=== PATIENT | female | born 1980 | race Caucasian/White ===

== ENCOUNTER 2020-11-20 15:08 | Emergency (ER) | payer BC, SELFPAY ==
--- NOTE | ~2020-11-20 | XR_ITS ---
XR tibia fibula RT 2V DATE: 11/20/2020 15:39 INDICATION: Fall today. Lower leg and ankle pain. TECHNIQUE: AP and lateral views COMPARISON: None FINDINGS: No fracture or dislocation. Normal alignment at the ankle and knee joints. No periosteal re action or bone destruction. IMPRESSION: Negative Reviewed, dictated and finalized at location B. IMPRESSION: Negative
--- NOTE | ~2020-11-20 | XR_ITS ---
XR knee RT min 4V DATE: 11/20/2020 15:38 INDICATION: Fall today. Lateral right knee pain. TECHNIQUE: 4 views. COMPARISON: None FINDINGS: No fracture or dislocation or joint effusion. No radiopaque intra-articular loose body or c hondrocalcinosis. Joint spaces are well preserved. No periosteal reaction or bone destruction. IMPRESSION: Negative Reviewed, dictated and finalized at location B. IMPRESSION: Negative
--- NOTE | ~2020-11-20 | XR_ITS ---
XR ankle RT min 3V DATE: 11/20/2020 15:38 INDICATION: Fall. Proximal lateral right ankle pain TECHNIQUE: 4 views COMPARISON: None FINDINGS: No fracture or dislocation of the ankle or disruption of the ankle mortise. No periosteal r eaction or bone destruction. IMPRESSION: Negative Reviewed, dictated and finalized at location B. IMPRESSION: Negative
[2020-11-20 15:10] VITALS: BP 140/88; PULSE 110; RESP 18; TEMP 36.7; O2SAT 98
--- NOTE | 2020-11-20 16:59 | ED.FALL ---
HPI - Fall General Chief Complaint: Fall Stated Complaint: Fall Time Seen by Provider: 11/20/20 16:43 Source: patient Mode of arrival: ambulatory Limitations: no limitations History of Present Illness HPI Narrative: 40-year-old female Patient states she has recurrent issues with her left leg seeming to give way and falling This happened about a week and a half ago and she has bruises on her left leg from that Happened today again and she fell down a couple steps and banged up her lower right leg Mainly complains of pain over her patella and the upper/outer part of the lower leg Did not hit her head does not have any neck or back pain and no other new injuries Did not have any other symptoms prior to falling Related Data Allergies Allergy/AdvReac Type Severity Reaction Status Date / Time adhesive tape Allergy Unknown Rash Verified 11/20/20 17:09 blueberry Allergy Unknown Hives Verified 11/20/20 17:09 cyclobenzaprine Allergy Unknown Rash Verified 11/20/20 17:09 latex Allergy Unknown Rash Verified 11/20/20 17:09 Review of Systems Review of Systems: All systems reviewed & are unremarkable except as noted in HPI and below Constitutional: Constitutional: Reports no additional constitutional complaints, Denies chills, Denies fever(s) and Denies headache(s) Eyes: Eyes: Reports no additional eye complaints and Denies change in vision ENT: Denies headache(s) and Denies sore throat Cardiovascular: Cardiovascular: Denies chest pain and Denies dyspnea Respiratory: Respiratory: Denies cough and Denies dyspnea Gastrointestinal: Gastrointestinal: Denies abdominal pain, Denies diarrhea and Denies vomiting Genitourinary: Genitourinary: Denies urinary frequency and Denies dysuria Musculoskeletal: Musculoskeletal: Denies deformity, Reports arthralgias, Reports joint swelling and Denies numbness Integumentary/Breasts: Skin/Breast: Denies rash and Denies wounds Neurologic: Denies headache(s), Reports focal weakness and Denies numbness Psychiatric: Psychiatric: Reports no additional psychiatric complaints Endocrine: Endocrine: Reports no additional endocrine complaints Hematologic/Lymphatic: Hematologic/Lymphatic: Reports no additional hematologic/lymphatic complaints Allergic/Immunologic: Allergic/Immunologic: Reports no additional allergic/immunologic complaints Exam Const: General: cooperative, no acute distress and alert Orientation/consciousness: patient oriented x3 (alert) HENMT: Head: normal to inspection, normocephalic, atraumatic, no contusions and no hematomas Ears: external ears normal General nose exam: no epistaxis Eyes: Conjunctivae: conjunctivae normal EOM: EOMs intact bilaterally Neck: Neck: normal visual inspection, supple and no JVD Other: Good range of motion Resp: Effort & Inspection: normal respiratory effort Auscultation: other (BS =) Skin: General skin exam: normal color and no rashes or lesions noted Rashes: no rashes Neuro: General: patient oriented x3 (alert) and moves all extremities Speech: normal speech Extrem: Other: Knee has no AP or varus valgus laxity. No discernible joint effusion. Full range of motion. Ecchymosis anteriorly. No medial tenderness, diffuse lateral tenderness. Pulses and sensation normal distally. Patient is able to stand/bear weight/walk. Psych: Affect: normal affect Course Vital Signs Vital signs: Vital Signs Temperature 36.7 C 11/20/20 15:10 Pulse Rate 110 H 11/20/20 15:10 Respiratory Rate 18 11/20/20 15:10 Blood Pressure 140/88 11/20/20 15:10 Pulse Oximetry 98 11/20/20 15:10 Temperature 36.7 C 11/20/20 15:10 Pulse Rate 110 H 11/20/20 15:10 Respiratory Rate 18 11/20/20 15:10 Blood Pressure 140/88 11/20/20 15:10 Pulse Oximetry 98 11/20/20 15:10 MDM - Fall Imaging Data Radiologist's impression: ITS Impressions Ankle X-Ray 11/20/20 15:45 IMPRESSION: Negative Knee X-Ray 11/20/20 15:46 IMPR
[2020-11-20 17:04] VITALS: BP 144/106; PULSE 90; RESP 16; O2SAT 95
[2020-11-20] MEDS: KETOROLAC (*BKC) 60 MG/2 ML VIAL IM (17:23)
[2020-11-20 17:52] VITALS: BP 159/100; PULSE 96; RESP 16; O2SAT 96
== END 2020-11-20 17:55 | disposition home or self-care (01) ==
PROVIDERS: Emergency Provider Emergency Medicine
DX: S80.12XA Contusion of left lower leg, initial encounter (principal); W19.XXXA Unspecified fall, initial encounter
CPT/HCPCS: 73564; 73590; 73610; 96372; 99284; J1885